=== PATIENT | male | born 1990 | race Caucasian/White ===

== ENCOUNTER 2017-08-29 13:07 | Outpatient (CLI) | payer BC ==
[~2017-08-29] VITALS: Ht 175.3 cm; Wt 83.5 kg
[~2017-08-29 13:07] MED LIST: AUGMENTIN 875-1 EAC1 ORAL; NKM
--- NOTE | 2017-08-29 13:52 | GI Initial Consult Note ---
History of Present Illness General Date patient seen: Aug 29, 2017 Time patient seen: 13:46 Referring physician: ROBERT Reason for Consultation: RECTAL BLEED Present Illness HPI 26 year old male patient referred by Dr. Goldsmith for reports of rectal bleeding. Patient seen, noted with 7 days of painless rectal bleeding described as bright and dark red. Denies constipation. Denies rectal pain. At this time, the patient states the bleeding has slowly resolved. No other known medical history. No history of endoscopies / colonoscopies. Denies any unintentional weight loss or changes in dietary habits. No signs of abuse or neglect. Patient is not fall risk. Home Meds Active Scripts Amoxicillin/Potassium Clav 875-125* (AUGMENTIN 875-125 TABLET*) 1 Each Tablet, 1 TAB ORAL TWICE A DAY, #14 TAB Prov:TALI GARRISON M.D. 11/30/12 Reported Medications No Known Medications* (NKM - No Known Medications*) ., 0 . 11/30/12 Med list reviewed/reconciled: Yes Allergies: Coded Allergies: No Known Allergies (Unverified , 11/30/12) Patient History History Provided By: Patient, Medical Record PMH Narrative None Pertinent Family History: none Social History: Reports: smoking - quit 5 years ago, alcohol use - social, drug use - MJ Review of Systems All Other Systems: negative except mentioned in HPI Physical Exam T 97.4 BP 140/86 P 65 98 RA HT 5'9 WT 184.1 Sp02 EP Interpretation: reviewed, normal General Appearance: well appearing, no apparent distress, alert Head: normocephalic EENT: PERRL/EOMI, normal ENT inspection Neck: supple Respiratory: normal breath sounds, no respiratory distress Cardiovascular: normal rate Gastrointestinal: normal inspection, non tender, soft, normal bowel sounds, non -distended Rectal: deferred Genitourinary: deferred Musculoskeletal: normal inspection, back normal Neurologic: normal inspection, alert, oriented x3, responsive Psychiatric: normal inspection, judgement/insight normal, memory normal Skin: normal inspection, normal color, no rash, warm/dry, palpation normal, well hydrated Lymphatic: normal inspection, no adenopathy GI: Plan Problems: (1) Rectal bleed (2) Hemorrhoids Plan Rx Anusol HC, colace sitz bath teaching refrain from excessive exercise at this time RTC if rectal bleeding persists, will consider flex sigmoidoscopy at this time. Seen with Dr. Suh. Thank you for this patient referral. Lisset Parra N.P. Aug 29, 2017 13:52
[2017-08-29 14:17] VITALS: BP 140/86
== END 2017-08-29 13:42 | disposition home or self-care (01) ==
LOC: PAN 13:07
DX: K62.5 Hemorrhage of anus and rectum (principal); K64.9 Unspecified hemorrhoids; Z87.891 Personal history of nicotine dependence
CPT/HCPCS: 99201